=== PATIENT | female | born 1985 | race Caucasian/White ===

== ENCOUNTER 2020-03-19 04:55 | Emergency (ER) | payer MEDICAID, SELFPAY ==
[2020-03-19 04:53] VITALS: BP 121/94; PULSE 96; RESP 20; TEMP 36.7; O2SAT 96
--- NOTE | 2020-03-19 05:48 | ED.EPISTAXIS ---
HPI - Epistaxis General Chief complaint: Epistaxis Stated complaint: nosebleed Time Seen by Provider: 03/19/20 05:02 History of Present Illness HPI Narrative: Patient is a 35-year-old female who presents ER with a nosebleed. She woke up from sleep due to her nose bleeding significantly. She tried to get it to stop for an hour but it would not stop. Denies any recent sinus congestion or sore throat. She has not been blowing her nose or putting her finger in her nose. She is not on blood thinners. No trauma. Related Data Home Medications Medication Instructions Recorded Confirmed No Home Medications 03/19/20 03/19/20 Allergies Allergy/AdvReac Type Severity Reaction Status Date / Time tramadol Allergy Unknown Headache Verified 03/19/20 05:01 Review of Systems Review of Systems: All systems reviewed & are unremarkable except as noted in HPI and below Constitutional: Constitutional: Denies chills, Denies fever(s) and Denies weakness ENT: Reports epistaxis, Denies nasal congestion and Denies sore throat Respiratory: Respiratory: Denies cough, Denies dyspnea and Denies wheezing Gastrointestinal: Gastrointestinal: Denies abdominal pain, Denies nausea and Denies vomiting PMFSH Past Medical History Medical History (Updated 03/19/20 @ 06:03 by Frandy Petty MD) Healthy female adult Surgical History Surgical History (Updated 03/19/20 @ 06:02 by Frandy Petty MD) No pertinent past surgical history Family History Family History (Updated 05/23/14 @ 07:13 by DOCTOR UNKNOWN) Grandparent Family history of malignant neoplasm of ovary Other Family history of malignant neoplasm of cervix Social History Social History Smoking status: Never smoker Alcohol intake: never Exam Narrative: Exam Narrative: GENERAL: Well-appearing, well-nourished, and in no acute distress. HEAD: Normocephalic, atraumatic. ENT: Red blood around the outside of the nose. Right side nasal mucosa injected when compared to left, no septal perforation. Mucous membranes moist. CHEST: Clear to auscultation. No respiratory distress. HEART: Regular rate and rhythm. Normal peripheral pulses. NEURO: Alert and oriented x3. Course Course Emergency Course: Bleeding is stopped with pressure. Nose irrigated. Phenylephrine used to help mitigate rebleed. Vital Signs Vital signs: Vital Signs Temperature 98.1 F 03/19/20 04:53 Pulse Rate 96 03/19/20 04:53 Respiratory Rate 20 03/19/20 04:53 Blood Pressure 121/94 H 03/19/20 04:53 Pulse Oximetry 96 03/19/20 04:53 Temperature 98.1 F 03/19/20 04:53 Pulse Rate 96 03/19/20 04:53 Respiratory Rate 20 03/19/20 04:53 Blood Pressure 121/94 H 03/19/20 04:53 Pulse Oximetry 96 03/19/20 04:53 Discharge Plan Discharge Clinical Impression: Epistaxis Patient Disposition: Home, Self-Care Condition: Stable Instructions: Nosebleed (ED) Additional Instructions: Return to the ER if you have severe uncontrolled bleeding that lasts longer than 20 minutes, you lose consciousness, or you are not able to breathe. After a severe episode of nosebleeding you may have a bowel movement that appears to have blood in it. This is due to the fact that you have swallowed a lot of blood. In order to prevent nosebleeds it is recommended that you use [place] nasal spray to increase moisture in your nose, you apply Vaseline as a barrier cream with a Q-tip, and that you use a humidifier/vaporizer in your bedroom at night. If you have oxymetazoline (Afrin) available, this can be used twice a day for no longer than 3 days. It can help control your bleeding. You may use claritin or zyrtec as nasal decongestants if your have a runny/stuffy nose. Prescriptions: No Action No Home Medications RF: 0 Follow-up/Referrals: PHYSICIAN,SCREW REMOVER [Primary Care Provider] -
[2020-03-19 06:01] VITALS: BP 109/94; PULSE 91; RESP 18; O2SAT 99
--- NOTE | 2020-03-19 06:46 | ED.EPISTAXIS ---
HPI - Epistaxis General Chief complaint: Epistaxis Stated complaint: nosebleed Time Seen by Provider: 03/19/20 05:02 History of Present Illness HPI Narrative: Patient is a 35-year-old female who presents the ER almost immediately after discharge with recurrence of epistaxis. Patient reports she walked out of the ER and did not get very far. She bent over and started having blood come out of her right nose. She is now passed 1 clot. She started applying pressure. No additional trauma. Denies blowing her nose. Related Data Home Medications Medication Instructions Recorded Confirmed No Home Medications 03/19/20 03/19/20 Allergies Allergy/AdvReac Type Severity Reaction Status Date / Time tramadol Allergy Unknown Headache Verified 03/19/20 05:01 Review of Systems ENT: Reports epistaxis, Denies nasal congestion and Denies sore throat PMFSH Past Medical History Medical History (Updated 03/19/20 @ 06:03 by Frandy Petty MD) Healthy female adult Surgical History Surgical History (Updated 03/19/20 @ 06:02 by Frandy Petty MD) No pertinent past surgical history Family History Family History (Updated 05/23/14 @ 07:13 by DOCTOR UNKNOWN) Grandparent Family history of malignant neoplasm of ovary Other Family history of malignant neoplasm of cervix Social History Social History Smoking status: Never smoker Alcohol intake: never Gender identity (if verbalized by the patient): Female Exam Narrative: Exam Narrative: GENERAL: Well-appearing, well-nourished, and in no acute distress. HEAD: Normocephalic, atraumatic. ENT: No active bleeding from right naris upon removal of nasal clip, no active bleeding from the left side. Mucous membranes moist. NEURO: Alert and oriented x3. PSYCH: Normal mood and affect. Course Course Emergency Course: We will give patient some [place] nasal spray due to cleanse her nasal cavity. She will receive a short-term observation in the ER. She does not wish to have a Rhino Rocket placed since she is not actively bleeding which is quite fair. Reevaluation(s) Reevaluation #1: no additional bleeding. d/c. Date: 03/19/20 Time: 07:31 Vital Signs Vital signs: Vital Signs Temperature 98.1 F 03/19/20 04:53 Pulse Rate 96 03/19/20 04:53 Respiratory Rate 20 03/19/20 04:53 Blood Pressure 121/94 H 03/19/20 04:53 Pulse Oximetry 96 03/19/20 04:53 Temperature 98.1 F 03/19/20 04:53 Pulse Rate 91 03/19/20 06:01 Respiratory Rate 18 03/19/20 06:01 Blood Pressure 109/94 H 03/19/20 06:01 Pulse Oximetry 99 03/19/20 06:01 Discharge Plan Discharge Clinical Impression: Epistaxis Patient Disposition: Home, Self-Care Condition: Stable Instructions: Nosebleed (ED) Additional Instructions: Return to the ER if you have severe uncontrolled bleeding that lasts longer than 20 minutes, you lose consciousness, or you are not able to breathe. After a severe episode of nosebleeding you may have a bowel movement that appears to have blood in it. This is due to the fact that you have swallowed a lot of blood. In order to prevent nosebleeds it is recommended that you use [place] nasal spray to increase moisture in your nose, you apply Vaseline as a barrier cream with a Q-tip, and that you use a humidifier/vaporizer in your bedroom at night. If you have oxymetazoline (Afrin) available, this can be used twice a day for no longer than 3 days. It can help control your bleeding. You may use claritin or zyrtec as nasal decongestants if your have a runny/stuffy nose. Prescriptions: No Action No Home Medications RF: 0 Follow-up/Referrals: PHYSICIAN,[facility] [Primary Care Provider] - Discharge Date/Time: 03/19/20 06:15
== END 2020-03-19 06:15 | disposition home or self-care (01) ==
PROVIDERS: Emergency Provider Emergency Medicine
DX: R04.0 Epistaxis (principal)
CPT/HCPCS: 30901; 99283; A9270

== ENCOUNTER 2020-03-19 06:34 | Emergency (ER) | payer MEDICAID, SELFPAY ==
--- NOTE | 2020-03-19 05:02 | ER_ITS ---
This report was moved to the correct visit, [id number] on 03/20/20. Original report was signed by Frandy Petty MD on 03/19/20 at 0733. HPI - Epistaxis General Chief complaint: Epistaxis Stated complaint: nosebleed Time Seen by Provider: 03/19/20 05:02 History of Present Illness HPI Narrative: Patient is a 35-year-old female who presents the ER almost immediately after discharge with recurrence of epistaxis. Patient reports she walked out of the ER and did not get very far. She bent over and started having blood come out of her right nose. She is now passed 1 clot. She started applying pressure. No additional trauma. Denies blowing her nose. Related Data Home Medications Medication Instructions Recorded Confirmed No Home Medications 03/19/20 03/19/20 Allergies Allergy/AdvReac Type Severity Reaction Status Date / Time tramadol Allergy Unknown Headache Verified 03/19/20 05:01 Review of Systems ENT: Reports epistaxis, Denies nasal congestion and Denies sore throat PMFSH Past Medical History Medical History (Updated 03/19/20 @ 06:03 by Frandy Petty MD) Healthy female adult Surgical History Surgical History (Updated 03/19/20 @ 06:02 by Frandy Petty MD) No pertinent past surgical history Family History Family History (Updated 05/23/14 @ 07:13 by DOCTOR UNKNOWN) Grandparent Family history of malignant neoplasm of ovary Other Family history of malignant neoplasm of cervix Social History Social History Smoking status: Never smoker Alcohol intake: never Gender identity (if verbalized by the patient): Female Exam Narrative: Exam Narrative: GENERAL: Well-appearing, well-nourished, and in no acute distress. HEAD: Normocephalic, atraumatic. ENT: No active bleeding from right naris upon removal of nasal clip, no active bleeding from the left side. Mucous membranes moist. NEURO: Alert and oriented x3. PSYCH: Normal mood and affect. Course Course Emergency Course: We will give patient some [place] nasal spray due to cleanse her nasal cavity. She will receive a short-term observation in the ER. She does not wish to have a Rhino Rocket placed since she is not actively bleeding which is quite fair. Reevaluation(s) Reevaluation #1: no additional bleeding. d/c. Date: 03/19/20 Time: 07:31 Vital Signs Vital signs: Vital Signs Temperature 98.1 F 03/19/20 04:53 Pulse Rate 96 03/19/20 04:53 Respiratory Rate 20 03/19/20 04:53 Blood Pressure 121/94 H 03/19/20 04:53 Pulse Oximetry 96 03/19/20 04:53 Temperature 98.1 F 03/19/20 04:53 Pulse Rate 91 03/19/20 06:01 Respiratory Rate 18 03/19/20 06:01 Blood Pressure 109/94 H 03/19/20 06:01 Pulse Oximetry 99 03/19/20 06:01 Discharge Plan Discharge Clinical Impression: Epistaxis Patient Disposition: Home, Self-Care Condition: Stable Instructions: Nosebleed (ED) Additional Instructions: Return to the ER if you have severe uncontrolled bleeding that lasts longer than 20 minutes, you lose consciousness, or you are not able to breathe. After a severe episode of nosebleeding you may have a bowel movement that appears to have blood in it. This is due to the fact that you have swallowed a lot of blood. In order to prevent nosebleeds it is recommended that you use [place] nasal spray to increase moisture in your nose, you apply Vaseline as a barrier cream with a Q-tip, and that you use a humidifier/vaporizer in your bed
[2020-03-19 06:37] VITALS: BP 137/97; PULSE 134; RESP 18; TEMP 37; O2SAT 98
[2020-03-19] MEDS: SALINE 0.65% NAS SOLN 44 ML BTL 1 SPRAY NASAL (07:03)
--- NOTE | 2020-03-19 07:25 | PC.NURSE ---
RN report given to Heydi Jiang by Rosaline.
== END 2020-03-19 07:37 | disposition home or self-care (01) ==
LOC: ANHED 06:59
PROVIDERS: Emergency Provider Emergency Medicine
DX: R04.0 Epistaxis (principal)
CPT/HCPCS: 99283

== ENCOUNTER 2020-03-19 18:41 | Emergency (ER) | payer MEDICAID, SELFPAY ==
[2020-03-19 18:44] VITALS: BP 128/96; PULSE 117; RESP 19; TEMP 36.9; O2SAT 100
[2020-03-19] MEDS: LACTATED RINGERS 1,000 ML 999 ML IV CONT (19:29)
[2020-03-19 19:36] LABS: Basophils Percent Auto 0.3 % (0.2-1.2); Eosinophils Absolute Auto 0.1 K/mm3 (0-0.3); Eosinophils Percent Auto 1.3 % (0-4.4); Hematocrit 37.4 % (37.0-47.0); Hemoglobin 13.8 g/dL (12.0-15.0); Immature Granulocyte Absolute 0.04 K/mm3 (0.00-0.031); Immature Granulocyte Percent A 0.5 % (0-0.5); Lymphocytes Absolute Auto 2.14 K/mm3 (0.9-3.2); Lymphocytes Percent Auto 24.9 % (18.3-44.2); Mean Corpuscular HGB Conc 36.9 g/dl (32-36); Mean Corpuscular Hemoglobin 36.2 pg (26-34); Mean Corpuscular Volume 98.2 fl (80-100); Mean Platelet Volume 9.4 fl (7.4-10.4); Monocytes Absolute Auto 0.7 K/mm3 (0.1-0.6); Monocytes Percent Auto 7.7 % (2.6-8.5); Neutrophils Absolute Auto 5.6 K/mm3 (1.3-6.7); Neutrophils Percent Auto 65.3 % (45.5-73.1); Platelet Count Result 213 k/mm3 (150-375); Red Blood Count 3.81 M/mm3 (4.2-5.4); Red Cell Distribution Width 10.8 % (11.5-14.5); White Blood Count 8.6 K/mm3 (4.5-10.0)
[2020-03-19 19:45] LABS: Prothrombin Time 12.9 Seconds (11.1-14.7)
--- NOTE | 2020-03-19 20:15 | ED.EPISTAXIS ---
HPI - Epistaxis General Chief complaint: Epistaxis <Rahul Dan MD - Last Filed: 04/09/20 16:06> Stated complaint: NOSE BLEED <Rahul Dan MD - Last Filed: 04/09/20 16:06> Time Seen by Provider: 03/19/20 18:54 <Rahul Dan MD - Last Filed: 04/09/20 16:06> Source: patient <Rahul Dan MD - Last Filed: 04/09/20 16:06> Mode of arrival: ambulatory <Rahul Dan MD - Last Filed: 04/09/20 16:06> Limitations: no limitations <Rahul Dan MD - Last Filed: 04/09/20 16:06> History of Present Illness HPI Narrative: 35-year-old female Third visit today for epistaxis Unsure which side initially was bleeding but now complains of spitting blood out of her mouth and blood from both nares Also see earlier notes <Rahul Dan MD - Last Filed: 04/09/20 16:06> MD complaint: epistaxis <Rahul Dan MD - Last Filed: 04/09/20 16:06> Location: bilateral nostril <Rahul Dan MD - Last Filed: 04/09/20 16:06> Onset (ago): hour(s) <Rahul Dan MD - Last Filed: 04/09/20 16:06> Duration: intermittent <Rahul Dan MD - Last Filed: 04/09/20 16:06> Related Data Home medications: Home Medications Medication Instructions Recorded Confirmed No Home Medications 03/21/20 03/21/20 <Rahul Dan MD - Last Filed: 04/09/20 16:06> Allergies/adverse reactions: Allergies Allergy/AdvReac Type Severity Reaction Status Date / Time tramadol Allergy Unknown Headache Verified 03/21/20 16:56 <Rahul Dan MD - Last Filed: 04/09/20 16:06> Review of Systems Review of Systems: All systems reviewed & are unremarkable except as noted in HPI and below <Rahul Dan MD - Last Filed: 04/09/20 16:06> Constitutional: Constitutional: Reports no additional constitutional complaints <Rahul Dan MD - Last Filed: 04/09/20 16:06> ENT: Denies dizziness and Reports epistaxis <Rahul Dan MD - Last Filed: 04/09/20 16:06> Respiratory: Respiratory: Reports no additional respiratory complaints and Denies cough <Rahul Dan MD - Last Filed: 04/09/20 16:06> Hematologic/Lymphatic: Hematologic/Lymphatic: Reports no additional hematologic/lymphatic complaints, Denies easy bleeding and Denies easy bruising <Rahul Dan MD - Last Filed: 04/09/20 16:06> [facility] Past Medical History Medical History: Medical History Healthy female adult <Rahul Dan MD - Last Filed: 04/09/20 16:06> Surgical History Surgical History: Surgical History No pertinent past surgical history <Rahul Dan MD - Last Filed: 04/09/20 16:06> Family History Family History: Family History Grandparent Family history of malignant neoplasm of ovary Other Family history of malignant neoplasm of cervix <Rahul Dan MD - Last Filed: 04/09/20 16:06> Social History Social History: Social History (Updated 03/21/20 @ 17:20 by Linda Philip MD) Smoking status: Current every day smoker Tobacco type: cigarettes Alcohol intake: never Gender identity (if verbalized by the patient): Female <Rahul Dan MD - Last Filed: 04/09/20 16:06> Exam Const: General: alert <Rahul Dan MD - Last Filed: 04/09/20 16:06> Orientation/consciousness: patient oriented x3 <Rahul Dan MD - Last Filed: 04/09/20 16:06> HENMT: Other: She has a clamp on her nose and a little bit of dried blood in each nares <Rahul Dan MD - Last Filed: 04/09/20 16:06> Eyes: Conjunctivae: conjunctivae normal <Rahul Dan MD - Last Filed: 04/09/20 16:06> EOM: EOMs intact bilaterally <Rahul Dan MD - Last Filed: 04/09/20 16:06> Resp: Effort & Inspection: normal respiratory effort <Rahul Dan MD - Last Filed: 04/09/20 16:06> Auscultation: clear to auscultation bilaterally <Rahul A. M
--- NOTE | 2020-03-19 20:36 | PC.NURSE ---
Nose started bleeding at this time. ERP in room.
--- NOTE | 2020-03-19 20:42 | PC.NURSE ---
ERP inserted 2 rhino rockets. 1 in each nare.
[2020-03-19] MEDS: MORPHINE SULFATE 4 MG/ML INJ IV PUSH (20:58)
[2020-03-19] MEDS: ONDANSETRON INJ 4 MG/2 ML VIAL IV PUSH (20:58)
[2020-03-19 21:37] VITALS: BP 130/98; PULSE 84; RESP 18; O2SAT 98
== END 2020-03-19 21:38 | disposition home or self-care (01) ==
PROVIDERS: Emergency Provider Emergency Medicine
DX: R04.0 Epistaxis (principal)
CPT/HCPCS: 30903; 36415; 85025; 85610; 96361; 96374; 96375; 99284; A9270; J2270; J2405; J7120

== ENCOUNTER 2020-03-20 15:51 | Emergency (ER) | payer MEDICAID, SELFPAY ==
[2020-03-20 16:11] VITALS: BP 110/73; PULSE 110; RESP 16; TEMP 36.4; O2SAT 98
--- NOTE | 2020-03-20 16:15 | PC.NURSE ---
Patient walked back to room without difficulty and in no distress at this time.
--- NOTE | 2020-03-20 16:22 | ED.GENADULT ---
HPI - General Adult General Chief complaint: Epistaxis Stated complaint: hx nosebleed Time Seen by Provider: 03/20/20 16:17 Source: patient Mode of arrival: EMS Limitations: no limitations History of Present Illness HPI narrative: 35-year-old female [facility]ed. Patient states she was seen twice in this ED yesterday for nosebleeds and states that these she had double Rhino Rocket's placed and they still were not able to control the bleeding so she got sent to [place] emergency department. Patient states that she did see the ENT doctors there and they did do a scope but they could not find the source of the pain. Patient states that they did discharge her follow-up with the ENT doctors however she states that she lives in [place] and she knows that she is can have to find an ENT doctor in [place] when she gets back. Patient states she actually has not had any more nosebleeds since being discharged from [place] this morning but states she can feel some blood draining to the back of her throat. Patient states she is here today because mostly she feels lightheaded, dizzy and just overall very drained. Patient states she does have slight nausea. Denies any vomiting or diarrhea. Patient states she does smoke and does have occasional alcohol use. Denies any drugs including cocaine. Related Data Allergies Allergy/AdvReac Type Severity Reaction Status Date / Time tramadol Allergy Unknown Headache Verified 03/20/20 16:15 Review of Systems Review of Systems: Narrative: CONSTITUTIONAL: Denies fever, chills, or sweats. EYES: Denies visual changes, redness, or discharge. ENT: Denies rhinorrhea, congestion, sore throat, or otalgia. CARDIOVASCULAR: Denies chest pain, palpitations, or edema. RESPIRATORY: Denies cough or dyspnea. GASTROINTESTINAL: Denies abdominal pain, nausea, vomiting, or diarrhea. GENITOURINARY: Denies dysuria or hematuria. SKIN: Denies rash or itching. MUSCULOSKELETAL: Denies back pain, joint pain, or myalgia. NEUROLOGIC: Positive headache, denies numbness, positive generalized weakness. PSYCHIATRIC: Denies anxiety or depression. PMFSH Past Medical History Medical History Healthy female adult Surgical History Surgical History No pertinent past surgical history Family History Family History Grandparent Family history of malignant neoplasm of ovary Other Family history of malignant neoplasm of cervix Social History Social History Smoking status: Never smoker Alcohol intake: never Gender identity (if verbalized by the patient): Female Comments At the time of my signature I agree with nursing past medical history, surgical, social, and family history. There is no relevant family history pertinent to the presenting complaint. Exam Narrative: Exam Narrative: GENERAL: Well-appearing, well-nourished, and in no acute distress. HEAD: Normocephalic, atraumatic. EYES: PERRLA and EOMI. ENT: Nares clear, no active nose bleeding at this time, no rhinorrhea or epistaxis. Mucous membranes moist. NECK: Supple. No lymphadenopathy CHEST: Clear to auscultation. No respiratory distress. Patient able talk clear complete sentences. HEART: Regular rate and rhythm. No murmur heard. Normal peripheral pulses. ABDOMEN: Soft, nontender, nondistended, normal active bowel sounds. EXTREMITIES: Normal range of motion. No edema. SKIN: Warm, dry, no rash. NEURO: No focal deficits. Alert and oriented x3. Course Reevaluation(s) Reevaluation #1: Reevaluated patient after she had received her fluid. Patient states that she is feeling better. Patient states she does not feel as weak as dizzy as before. Discussed with patient we will get her up to check her vitals and wal
[2020-03-20] MEDS: SODIUM CHLORIDE 0.9% IV 1,000 ML 999 ML IV CONT (16:35)
[2020-03-20 16:40] LABS: Basophils Percent Auto 0.4 % (0.2-1.2); Eosinophils Absolute Auto 0.1 K/mm3 (0-0.3); Eosinophils Percent Auto 0.6 % (0-4.4); Hematocrit 28.4 % (37.0-47.0); Hemoglobin 10.2 g/dL (12.0-15.0); Immature Granulocyte Absolute 0.06 K/mm3 (0.00-0.031); Immature Granulocyte Percent A 0.6 % (0-0.5); Lymphocytes Absolute Auto 1.77 K/mm3 (0.9-3.2); Lymphocytes Percent Auto 16.5 % (18.3-44.2); Mean Corpuscular HGB Conc 35.9 g/dl (32-36); Mean Corpuscular Hemoglobin 36.3 pg (26-34); Mean Corpuscular Volume 101.1 fl (80-100); Mean Platelet Volume 9.7 fl (7.4-10.4); Monocytes Absolute Auto 0.7 K/mm3 (0.1-0.6); Monocytes Percent Auto 6.2 % (2.6-8.5); Neutrophils Absolute Auto 8.1 K/mm3 (1.3-6.7); Neutrophils Percent Auto 75.7 % (45.5-73.1); Platelet Count Result 194 k/mm3 (150-375); Red Blood Count 2.81 M/mm3 (4.2-5.4); White Blood Count 10.7 K/mm3 (4.5-10.0)
[2020-03-20 16:50] LABS: Partial Thromboplastin Time 25.5 SECONDS (22.3-36.8)
[2020-03-20 16:52] LABS: Alanine Aminotransferase 84 U/L (4-35); Albumin Level 3.9 g/dL (3.5-5.1); Alkaline Phosphatase 73 U/L (38-126); Aspartate Amino Transferase 88 U/L (14-36); Bilirubin,Total 0.5 mg/dL (0.2-1.3); Blood Urea Nitrogen 15 mg/dL (7-17); Calcium 8.4 mg/dL (8.4-10.2); Carbon Dioxide 29 mmol/L (22-30); Chloride 103 mmol/L (98-107); Estimated CRCL calculation 62 ml/min; Estimated Glomerular Filt Rate > 60; Glucose 111 mg/dL (65-105); Potassium 3.3 mmol/L (3.4-5.0); Sodium 136 mmol/L (137-145)
[2020-03-20 17:59] LABS: Amphetamine Screen Urine Negative (Negative); Barbiturate Screen Urine Negative (Negative); Benzodiazepines Screen Urine Negative (Negative); Cannabinoid Screen Urine Negative (Negative); Cocaine Screen Urine Negative (Negative); Methadone Screen Urine Negative (Negative); Opiate Screen Urine Positive (Negative); Phencyclidine Screen Urine Negative (Negative)
[2020-03-20 18:02] VITALS: BP 104/69; PULSE 85
[2020-03-20 18:03] VITALS: BP 109/75; PULSE 94
[2020-03-20 18:04] VITALS: BP 130/68; PULSE 98
== END 2020-03-20 18:14 | disposition home or self-care (01) ==
PROVIDERS: Emergency Provider Nurse Practitioner Family
DX: R04.0 Epistaxis (principal)
CPT/HCPCS: 36415; 80053; 80307; 85025; 85610; 85730; 96360; 99283; J7030

== ENCOUNTER 2020-03-21 16:53 | Emergency (ER) | payer MEDICAID, SELFPAY ==
[2020-03-21 16:53] VITALS: BP 115/73; PULSE 99; RESP 17; TEMP 36.7; O2SAT 97
--- NOTE | 2020-03-21 16:57 | ED.GENADULT ---
HPI - General Adult General Chief complaint: Unspecified Stated complaint: NOSE BLEED Time Seen by Provider: 03/21/20 16:57 Source: patient and EMS Mode of arrival: EMS Limitations: no limitations History of Present Illness HPI narrative: Patient is a 35-year-old female female who presents for evaluation of recurrent nosebleed. Patient has been seen at this facility 4 times in his many days, has also been seen in the [facility]. She has had Afrin, nasal packing, Rhino Rocket's and none of these have stopped the bleeding. Patient states that she trying to obtain follow-up with a local vibrating screen operator, however they were unable to see her for a week, patient states she is trying to return to [place] which is her permanent residence. Patient denies history of nosebleed ever prior to this most recent occurrences over the past week, she states her work-up at this hospital and [facility] are all negative. No facial trauma. No fever. No syncope or lightheadedness. Related Data Home Medications Medication Instructions Recorded Confirmed No Home Medications 03/21/20 03/21/20 Allergies Allergy/AdvReac Type Severity Reaction Status Date / Time tramadol Allergy Unknown Headache Verified 03/21/20 16:56 Review of Systems Review of Systems: Narrative: CONSTITUTIONAL: Denies fever CARDIOVASCULAR: Denies chest pain RESPIRATORY: Denies cough or dyspnea. GASTROINTESTINAL: Denies abdominal pain SKIN: Denies rash MUSCULOSKELETAL: Denies back pain NEUROLOGIC: Denies headache PMFSH Past Medical History Medical History Healthy female adult Surgical History Surgical History No pertinent past surgical history Social History Social History (Updated 03/21/20 @ 17:20 by Linda Philip MD) Smoking status: Current every day smoker Tobacco type: cigarettes Alcohol intake: never Gender identity (if verbalized by the patient): Female Exam Narrative: Exam Narrative: GENERAL: Awake, alert, conversant HEAD: Normocephalic, atraumatic. EYES: PERRLA and EOMI. ENT: Nares clear, positive epistaxis, right naris. Blood clot present in the oropharynx. NECK: Supple. CHEST: No respiratory distress, breathing even and non labored HEART: Regular rate, sinus rhythm ABDOMEN:Non distended, non tender EXTREMITIES: Normal range of motion. No edema. SKIN: Warm, dry, no rash. NEURO:No focal deficits. Alert and oriented x3 Course Vital Signs Vital signs: Vital Signs Temperature 36.7 C 03/21/20 16:53 Pulse Rate 99 03/21/20 16:53 Respiratory Rate 17 03/21/20 16:53 Blood Pressure 115/73 03/21/20 16:53 Pulse Oximetry 97 03/21/20 16:53 Temperature 36.7 C 03/21/20 16:53 Pulse Rate 99 03/21/20 16:53 Respiratory Rate 17 03/21/20 16:53 Blood Pressure 115/73 03/21/20 16:53 Pulse Oximetry 97 03/21/20 16:53 Medical Decision Making MDM Narrative Medical decision making narrative: Patient presented for evaluation of recurrent epistaxis. At the time of initial assessment ABCs are intact vital signs are stable. No active epistaxis. Patient does have some blood clot present in the bilateral naris, patient did attempt to blow her nose and then had recurrent epistaxis that appears to be anterior in the right naris. No airway compromise. I tried to do Afrin and a nasal clamp which the patient refused. I then tried to get permission to do a Rhino Rocket which the patient also refused. Patient refused packing or intervention of any sort. She refused lab draw. The patient, her mother and I spoke at length regarding recurrent epistaxis, the likely need for ENT on an outpatient basis given the bleeding seems to start and stop suddenly without any intervention. Patient then refused any other intervention and wanted to be discharged from the hospital. At this point, I do not feel the patient needs to leave AGAINS
[2020-03-21] MEDS: OXYMETAZOLINE HCL 0.05% NAS 15 ML BTL (*BKC) 1 SPRAY NASAL (17:13)
== END 2020-03-21 17:50 | disposition home or self-care (01) ==
PROVIDERS: Emergency Provider Emergency Medicine
DX: R04.0 Epistaxis (principal); F17.210 Nicotine dependence, cigarettes, uncomplicated
CPT/HCPCS: 99282; A9270